=== PATIENT | male | born 1985 | race Caucasian/White ===

== ENCOUNTER 2021-06-05 12:56 | Emergency (ER) | payer MEDICAID ==
[~2021-06-05] VITALS: Ht 167.6 cm; Wt 83.0 kg
[2021-06-05] MEDS ORDERED: IBUP-2029 MT (13:43)
[2021-06-05] MEDS ORDERED: CEPH500T MT (13:43)
[2021-06-05] MEDS ORDERED: IBUPROFEN 600MG TABLET PO NR (13:45)
[2021-06-05 13:47] VITALS: BP 133/93
== END 2021-06-05 13:51 | disposition home or self-care (01) ==
LOC: ER 12:56
DX: L72.8 Other follicular cysts of the skin and subcutaneous tissue (principal); L02.415 Cutaneous abscess of right lower limb; R03.0 Elevated blood-pressure reading, without diagnosis of hypertension
CPT/HCPCS: 99283

== ENCOUNTER 2021-08-05 11:35 | Emergency (ER) | payer MEDICAID ==
[~2021-08-05] VITALS: Ht 167.6 cm; Wt 87.0 kg
[~2021-08-05 11:35] MED LIST: CEPH500T MT; IBUP-2029 MT
[2021-08-05] MEDS ORDERED: IBUPROFEN 600MG TABLET PO ONE (12:00)
[2021-08-05 12:16] VITALS: BP 138/77
[2021-08-05] MEDS ORDERED: DOXYCYCLINE HYCLATE 100MG CAPSULE PO ONE (13:45)
[2021-08-05] MEDS ORDERED: DOXY100T28 MT (13:46)
[2021-08-05] MEDS ORDERED: IBUP-2029 MT (13:46)
== END 2021-08-05 14:10 | disposition home or self-care (01) ==
LOC: ER 11:35
DX: N45.4 Abscess of epididymis or testis (principal); N43.3 Hydrocele, unspecified
CPT/HCPCS: 76870; 93976; 99284

== ENCOUNTER 2023-05-23 06:46 | Emergency (ER) | payer MEDICAID ==
[~2023-05-23] VITALS: Ht 167.6 cm; Wt 95.0 kg
[~2023-05-23 06:46] MED LIST changes: +DOXY100T28 MT
[2023-05-23 07:33] VITALS: BP 153/99; PULSE 109; RESP 16; TEMP 98.3; O2SAT 98
[2023-05-23] MEDS ORDERED: LIDOCAINE HCL/EPINEPHRINE 1%-EPI 1:100,000 20 ML VIAL INFIL ONE (10:15)
[2023-05-23] MEDS ORDERED: BACITRACIN ZINC OINT UDPKT TOP ONE (10:15)
[2023-05-23] MEDS ORDERED: BACITRACIN ZINC OINT UDPKT TOP NR (11:00)
[2023-05-23] MEDS ORDERED: LIDOCAINE HCL/EPINEPHRINE 1%-EPI 1:100,000 30 ML VIAL INFIL NR (11:00)
[2023-05-23] MEDS ORDERED: SULF1TAB48 MT (12:29)
[2023-05-23] MEDS ORDERED: CEPH500C2 MT (12:29)
[2023-05-23] MEDS ORDERED: METF-414 MT (12:29)
== END 2023-05-23 12:49 | disposition home or self-care (01) ==
LOC: ER 06:46
DX: L02.215 Cutaneous abscess of perineum (principal); E11.9 Type 2 diabetes mellitus without complications
CPT/HCPCS: 82962; 10060; 99283; J3490; Z7610 ×3